=== PATIENT | female | born 1950 | race Caucasian/White ===

== ENCOUNTER 2021-06-28 19:09 | Emergency (ER) | payer MEDICARE ==
[~2021-06-28] VITALS: Ht 157.5 cm; Wt 69.9 kg
[2021-06-28 21:32] LABS: HEMOGLOBIN 14.3 gm/dl (12.3-15.3); RED BLOOD COUNT 4.69 M/UL (4.00-5.10); WHITE BLOOD COUNT 10.1 K/UL (4.5-11.0)
[2021-06-28 21:57] LABS: BUN/CREATININE RATIO 34 (0-10)
[2021-06-29 02:27] LABS: BUN/CREATININE RATIO 33 (0-10)
[2021-06-29] MEDS ORDERED: [UNRECOGNIZED DRUG - REMARK] (02:48)
== END 2021-06-29 03:08 | disposition home or self-care (01) ==
LOC: ER1 19:09
PROVIDERS: Family Medicine; Nurse Practitioner
DX: L03.115 Cellulitis of right lower limb (principal); R79.1 Abnormal coagulation profile; F17.210 Nicotine dependence, cigarettes, uncomplicated
CPT/HCPCS: 71045; 80048; 80053; 81001; 82550; 82553; 83874; 83880; 84484; 85025; 85379; 85610; 85652; 86140; 99283